=== PATIENT | female | born 1970 | race Caucasian/White ===

== ENCOUNTER 2019-11-03 21:22 | Emergency (ER) | payer OTHER ==
[~2019-11-03] VITALS: Ht 172.7 cm; Wt 92.1 kg
[2019-11-03] MEDS ORDERED: DERMACINRX5000 UNIT PO (21:42)
[2019-11-03] MEDS ORDERED: OMEGA-31000 MG PO (21:42)
[2019-11-03] MEDS ORDERED: ATORVASTATIN CA10 MG PO (21:43)
[2019-11-03] MEDS ORDERED: VISTARIL50 MG PO (23:52)
== END 2019-11-03 23:50 | disposition home or self-care (01) ==
LOC: ER 21:22
DX: R07.89 Other chest pain (principal); F41.8 Other specified anxiety disorders

== ENCOUNTER 2019-11-17 22:01 | Emergency (ER) | payer OTHER ==
[~2019-11-17] VITALS: Ht 172.7 cm; Wt 89.8 kg
[~2019-11-17 22:01] MED LIST: ATORVASTATIN CA10 MG PO; DERMACINRX5000 UNIT PO; OMEGA-31000 MG PO; VISTARIL50 MG PO
== END 2019-11-17 23:50 | disposition home or self-care (01) ==
LOC: ER 22:01
DX: I16.1 Hypertensive emergency (principal); I10 Essential (primary) hypertension

== ENCOUNTER 2019-11-29 00:15 | Emergency (ER) | payer OTHER ==
[~2019-11-29] VITALS: Ht 172.7 cm; Wt 88.5 kg
[2019-11-29] MEDS ORDERED: TOPROL XL25 M1 (00:46)
[2019-11-29] MEDS ORDERED: VISTARIL25 MG PO (01:20)
== END 2019-11-29 01:50 | disposition home or self-care (01) ==
LOC: ER 00:15
DX: R00.2 Palpitations (principal); F06.4 Anxiety disorder due to known physiological condition